=== PATIENT | female | born 1965 | race Caucasian/White ===

== ENCOUNTER 2016-12-02 08:27 | Inpatient (IN) | payer MEDICAID ==
[~2016-12-02] VITALS: Ht 157.5 cm; Wt 81.2 kg
[~2016-12-02 08:27] MED LIST: ASPI-867 PO; ATOR40TA70 PO; CLOP75TA15 PO; DICL75TA5 PO; ISOS30TA6 PO; LISI-604 PO
[2016-12-02] MEDS ORDERED: HEPARIN SODIUM 1,000 UNIT/1ML VIAL IV ONE (11:55)
[2016-12-02] MEDS ORDERED: METF500T4 PO (12:07)
[2016-12-02] MEDS ORDERED: LIDOCAINE HCL 1% 20ML VIAL (Pyxis) INJ ONE (12:57)
[2016-12-02] MEDS ORDERED: MIDAZOLAM HCL 2 MG/2 ML VIAL ONE (13:07)
[2016-12-02] MEDS ORDERED: FENTANYL CITRATE/PF 50MCG/ML 2ML VIAL ONE (13:07)
[2016-12-02] MEDS ORDERED: IOHEXOL-300 100 ML BOTTLE ONE (13:17)
[2016-12-02] MEDS ORDERED: IOVERSOL 240MG/ML 100ML BOTTLE IV ONE (13:39)
[2016-12-02] MEDS ORDERED: ATROPINE SULFATE 1MG/10ML SYR IV PRN (14:00)
[2016-12-02] MEDS ORDERED: ACETAMINOPHEN 325MG TABLET PO PRN (14:00)
[2016-12-02] MEDS ORDERED: CLOPIDOGREL 75MG TABLET ONE (14:06)
[2016-12-02 14:41] VITALS: BP 148/74
[2016-12-02] MEDS: ATENOLOL 25MG TABLET PO SCH (15:13)
[2016-12-02] MEDS: ASPIRIN 325MG EC TABLET PO SCH (15:13)
[2016-12-02] MEDS: CLOPIDOGREL 75MG TABLET PO SCH (15:13)
[2016-12-02] MEDS: AMLODIPINE 5MG TABLET PO SCH (15:14)
[2016-12-02 16:00] VITALS: BP 125/74
[2016-12-02] MEDS ORDERED: SODIUM CHL 0.45% + KCL 20MEQ/L 1,000 ML IV SCH (16:00)
[2016-12-02 18:00] VITALS: BP 127/79
[2016-12-02] MEDS: SODIUM CHL 0.45% + KCL 20MEQ/L 1,000 ML IV SCH (18:01)
[2016-12-02 20:00] VITALS: BP 120/61
[2016-12-02] MEDS ORDERED: DEXTROSE 50% WATER 50ML SYRINGE IV PRN (20:15)
[2016-12-02] MEDS: LISINOPRIL 20MG TABLET PO SCH (20:34)
[2016-12-02] MEDS: BLOOD SUGAR DIAGNOSTIC STRIP TEST SCH (20:36)
[2016-12-02] MEDS: INSULIN LISPRO 100 UNITS/ML SUBCUT SCH (20:36)
[2016-12-02] MEDS ORDERED: ATORVASTATIN CALCIUM 40MG TABLET PO SCH (21:00)
[2016-12-02 22:00] VITALS: BP 133/68
[2016-12-03] VITALS (7 sets, daily range): BP systolic 116–135; BP diastolic 62–78
[2016-12-03] MEDS: SODIUM CHL 0.45% + KCL 20MEQ/L 1,000 ML IV SCH (04:48)
[2016-12-03] MEDS: BLOOD SUGAR DIAGNOSTIC STRIP TEST SCH (05:50)
[2016-12-03] MEDS: INSULIN LISPRO 100 UNITS/ML SUBCUT SCH (07:20)
[2016-12-03 07:36] LABS: CARBON DIOXIDE 26 mEq/L (21-32); CHLORIDE 108 mEq/L (98-107)
[2016-12-03 07:55] LABS: BASOPHILS % 0.7 % (0.0-2.0); EOSINOPHILS % 2.1 % (0.0-5.0); HEMATOCRIT. 32.1 % (36.0-48.0); HEMOGLOBIN. 10.4 g/dL (12.0-16.0); LYMPHOCYTES % 31.1 % (20.0-50.0); MEAN CORPUSCULAR HEMOGLOBIN 27.2 pg (28.0-32.0); MEAN CORPUSCULAR VOLUME 83.5 fL (81.0-99.0); MEAN PLATELET VOLUME 8.7 fl (7.4-10.4); MONOCYTES % 6.6 % (2.0-8.0); NEUTROPHILS % 59.5 % (40.0-76.0); PLATELET 245 x1000/uL (130-400); RED BLOOD CELL COUNT 3.84 mill/uL (4.2-5.4); RED CELL DISTRIBUTION WIDTH 13.6 % (11.6-14.6)
[2016-12-03] MEDS: CLOPIDOGREL 75MG TABLET PO SCH (08:55)
[2016-12-03] MEDS: ASPIRIN 325MG EC TABLET PO SCH (08:55)
[2016-12-03] MEDS: LISINOPRIL 20MG TABLET PO SCH (08:55)
[2016-12-03] MEDS: AMLODIPINE 5MG TABLET PO SCH (08:56)
[2016-12-03] MEDS: ATENOLOL 25MG TABLET PO SCH (09:00)
== END 2016-12-03 11:55 | disposition home or self-care (01) | DRG 175 ==
LOC: CCL 08:27 → 3WST 08:28
PROVIDERS: ADMIT Specialist; ATTEND Specialist
PROC: 4A023N7 Measurement of Cardiac Sampling and Pressure, Left Heart, Percutaneous Approach (ICD-10-PCS; principal; 2016-12-02)
PROC: 027034Z Dilation of Coronary Artery, One Artery with Drug-eluting Intraluminal Device, Percutaneous Approach (ICD-10-PCS; 2016-12-02)
PROC: B2111ZZ Fluoroscopy of Multiple Coronary Arteries using Low Osmolar Contrast (ICD-10-PCS; 2016-12-02)
DX: I25.10 Atherosclerotic heart disease of native coronary artery without angina pectoris (principal); I10 Essential (primary) hypertension; E11.9 Type 2 diabetes mellitus without complications; E78.5 Hyperlipidemia, unspecified; Z82.49 Family history of ischemic heart disease and other diseases of the circulatory system; Z83.3 Family history of diabetes mellitus
CPT/HCPCS: 36415; 80048; 82962; 85025; 85347; 92928; 93005; 93458; C1725; C1760; C1769; C1887; C1893; J1644; J2250; J3010; J3480; J3490; Q9967